=== PATIENT | male | born 1955 | race American Indian/Alaskan Native ===

== ENCOUNTER 2018-06-28 06:31 | Emergency (ER) | payer MEDICARE ==
[2018-06-28 06:44] VITALS: BP 137/79
[2018-06-28] MEDS ORDERED: TORADOL IM ONE (08:15)
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
--- NOTE | 2018-06-28 08:51 | XRay Report ---
FINAL REPORT EXAM: XR SPINE LUMBOSACRAL 2-3V HISTORY: BACK INJURY TECHNIQUE: Three views lumbar spine PRIORS: None. FINDINGS: Straightening of the lumbar spine. Diffuse mild endplate spondylosis. Lower lumbar mild intervertebra l disc space narrowing. Vertebral body heights are preserved. No listhesis, spondylolysis or other f racture. IMPRESSION: No acute fracture or gross malalignment. There are diffuse mild sequela of lumbar disc degeneration m ost significant in the lower lumbar spine.
== END 2018-06-28 09:34 | disposition home or self-care (01) ==
LOC: ED 06:31
DX: M54.40 Lumbago with sciatica, unspecified side (principal); I10 Essential (primary) hypertension; M19.90 Unspecified osteoarthritis, unspecified site; F17.200 Nicotine dependence, unspecified, uncomplicated
CPT/HCPCS: 72100; 96372; 99283; J1885

== ENCOUNTER 2018-07-04 05:54 | Emergency (ER) | payer MEDICARE ==
[2018-07-04] MEDS ORDERED: TORADOL IM ONE (06:15)
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
[2018-07-04 06:43] VITALS: BP 144/90
== END 2018-07-04 06:42 | disposition home or self-care (01) ==
LOC: ED 05:54
DX: M54.42 Lumbago with sciatica, left side (principal); G89.29 Other chronic pain; I10 Essential (primary) hypertension; M19.90 Unspecified osteoarthritis, unspecified site; F17.200 Nicotine dependence, unspecified, uncomplicated; Z79.899 Other long term (current) drug therapy
CPT/HCPCS: 96372; 99282; J1885

== ENCOUNTER 2020-09-26 09:58 | Outpatient (CLI) | payer MEDICARE ==
--- NOTE | 2020-09-26 11:11 | XRay Report ---
Right hip radiograph, 3 views. HISTORY: Right hip pain COMPARISON: None FINDINGS: Marked right hip degenerative arthrosis with obliteration of the superior right hip joint s pace and prominent subchondral cyst formation of the acetabulum and femoral head. There is remodeling of the superior right femoral head contour. Findings may be related to sequela of prior trauma. Ther e is only mild left hip osteoarthritis. No acute fracture or malalignment. Mild degenerative changes of the SI joints and pubic symphysis. Lower lumbar spondylosis partially imaged. IMPRESSION: Marked right hip osteoarthritis, may be related to sequela of prior trauma. No acute osse ous findings. Signer Name: Saleem Thao MD Signed: 09/26/2020 11:07 AM Workstation Name: [id number]
== END 2020-09-26 09:59 | disposition home or self-care (01) ==
LOC: XRAY 09:58
PROVIDERS: ATTEND Orthopaedic Surgery
DX: M16.11 Unilateral primary osteoarthritis, right hip (principal); M47.898 Other spondylosis, sacral and sacrococcygeal region; M47.816 Spondylosis without myelopathy or radiculopathy, lumbar region

== ENCOUNTER 2020-11-07 09:57 | Inpatient (IN) | payer MEDICARE ==
[2020-11-06 10:08] LABS: Hematocrit 41.4 % (35.5-45.6); Hemoglobin 14.7 gm/dl (11.8-15.2); Mean Corpuscular HGB Conc 36 % (32-34); Mean Corpuscular Volume 90 fl (84-94); Platelet Count 213 K/mm3 (140-440); Red Blood Count 4.62 M/mm3 (3.65-5.03); Red Cell Distribution Width 14.3 % (13.2-15.2)
[2020-11-06 10:20] LABS: BUN/Creatinine Ratio 19; Blood Urea Nitrogen 15 mg/dL (9-20); Calcium 9.9 mg/dL (8.4-10.2); Hemolysis Index 20
--- NOTE | 2020-11-06 15:11 | Anesthesia Consultation ---
Anesthesia Consult and Med Hx Date of service: 11/07/20 - Airway Anesthetic Teeth Evaluation: Poor (Missing) ROM Head & Neck: Adequate Mental/Hyoid Distance: Adequate Mallampati Class: Class I Intubation Access Assessment: Good - Pre-Operative Health Status ASA Pre-Surgery Classification: ASA3 Proposed Anesthetic Plan: General (Pt refuses SAB) - Pulmonary Hx Smoking: Yes (1/2 PPS X 42 YRS) Hx Asthma: No Hx Respiratory Symptoms: Yes (occasional nonproductive cough) SOB: No Hx Sleep Apnea: Yes (DX SLEEP APNEA , NO CPAP USE) - Cardiovascular System Hx Hypertension: Yes (X 10 YRS) Hx Heart Attack/AMI: No Hx Percutaneous Transluminal Coronary Angioplasty (PTCA): No Hx Cardia Arrhythmia: No - Central Nervous System Hx Neuromuscular Disorder: No Hx Seizures: No CVA: No Hx Back Pain: Yes (CHRONIC) Hx Psychiatric Problems: No - Gastrointestinal Hx Gastroesophageal Reflux Disease: No - Endocrine Hx Insulin Dependent Diabetes: No Hx Non-Insulin Dependent Diabetes: No Hx Thyroid Disease: No - Hematic Hx Sickle Cell Disease: No - Other Systems Hx Alcohol Use: Yes (BEER OCCA) Hx Substance Use: No Hx Cancer: No Hx Obesity: Yes
[~2020-11-07 09:57] MED LIST: ACETAMINOPHEN 500 MG TAB PO SCH; CELECOXIB 200 MG CAP PO NR; GABAPENTIN 300 MG CAP PO NR; MAGNESIUM OXIDE 400 MG TAB PO SCH; MIDAZOLAM 2 MG/2 ML INJ IV NR; ceFAZolin/Water 2 GM/20 ML 2 GM/20 ML SYRINGE IV NR
[2020-11-07] MEDS ORDERED: dexAMETHasone 4 MG/ML VIAL ONE (10:59)
[2020-11-07] MEDS ORDERED: BUPIVACAINE-EPINEPHRINE/PF 0.25%-1:200,000 (30 ML) VIAL INFILTRATI ONE (10:59)
[2020-11-07] MEDS: LACTATED RINGERS 1,000 ML IV SCH ×2 (11:30→19:12)
[2020-11-07] MEDS ORDERED: NEOMY 40 MG/POLYMYXIN B 200,000 UNITS/ML (GU) AMPULE IR ONE ×2 (12:09→15:13)
[2020-11-07] MEDS ORDERED: HYDROmorphone 1 MG/1 ML INJ ONE (12:23)
[2020-11-07] MEDS ORDERED: propofoL 200 MG/20 ML VIAL IV ONE (12:24)
[2020-11-07] MEDS ORDERED: LIDOCAINE MPF (2%) 20 MG/1 ML VIAL 5 ML ONE (12:24)
[2020-11-07] MEDS ORDERED: CITRIC ACID-SOD CITRATE 500 ML IV ONE (12:35)
[2020-11-07] MEDS ORDERED: KETOROLAC 30 MG/1 ML INJ ONE ×2 (14:01→15:18)
[2020-11-07] MEDS ORDERED: BUPIVACAINE/PF (0.5%) 5 MG/1 ML 30 ML VIAL INFILTRATI ONE (14:01)
[2020-11-07] MEDS ORDERED: MORPHINE 10 MG/1 ML INJ ONE (14:02)
[2020-11-07] MEDS ORDERED: SODIUM CHLORIDE 0.9% 100 ML ONE (14:03)
[2020-11-07] MEDS ORDERED: SODIUM CHLORIDE 0.9% 50 ML ONE (14:06)
[2020-11-07] MEDS ORDERED: PHENYLEPHRINE/NS 1,000 MCG/10 ML SYRINGE (OR USE) IV ONE (14:46)
[2020-11-07] MEDS ORDERED: BUPIVACAINE-EPINEPHRINE/PF 0.5%-1:200,000 (30 ML) VIAL INFILTRATI ONE (15:15)
[2020-11-07] MEDS ORDERED: KETOROLAC 30 MG/1 ML INJ IV ONE (15:16)
[2020-11-07] MEDS ORDERED: MORPHINE 10 MG/1 ML INJ IV ONE (15:16)
[2020-11-07] MEDS ORDERED: SODIUM CHLORIDE 0.9% 250 ML IVPB IV ONE (15:17)
[2020-11-07] MEDS ORDERED: SODIUM CHLORIDE 0.9% IRRIG SOLN 2000 ML IR ONE (15:18)
[2020-11-07] MEDS ORDERED: ONDANSETRON 4 MG/2 ML INJ ONE (15:18)
--- NOTE | 2020-11-07 15:18 | Procedure Note ---
Date of procedure: 11/07/20 Pre-op diagnosis: Severe arthritis right hip Post-op diagnosis: same Procedure: Right total hip replacement Procedure The patient was brought to the OR and placed in the OR table in the supine position following induction intubation by anesthesia the patient's was turned into the left lateral decubitus position care was taken to protect the bony areas and a axillary roll was used and the right axilla. Right hip and thigh were then prepped and draped in the usual sterile manner. A timeout procedure was done to identify the patient and the correct operative site. Using the lateral approach incision was taken down through skin and subcutaneous the fascia fransisca was incised A Charnley retractor was placed deep within the wound care was taken to enter the anterior hip capsule by the vastus lateralis and the gluteus medius tendons in the knee was flexed and internally rotated which brought us upon the anterior portion of the hip joint using a small broach and osteotomy was performed on the femoral neck approximately 2 cm to centimeters proximal to the lesser trochanter. Using Jimenez retractors the the acetabular structures were evaluated the patient was noted to have some moderate changes within the acetabulum reaming was begun starting with a 46 mm diameter and advancing up to a 58 mm cup was taken to the observed bleeding bone within the acetabulum nicely 58 mm cup was inserted care was taken to maintain the proper version that being 45 abduction and 20 of anteversion and a small screw was used to stabilize this acetabular component next attention was turned to the proximal femur using a [employer] cutter and the proximal femoral canal was entered this was then reamed and broached to a #6 stem And the hip joint was then reduced using a 30 neutral neck and a 36 mm head hip was reduced taken through a range of motion and was found to be stable Trial component was removed and the hip joint was then copiously irrigated the final components were inserted that being a #5 femoral stem with a 36 mm head again the hip joint was reduced and was taken through a range of motion and found stable. He was closed in a standard routine fashion. Dressings were applied the patient tolerated the procedure and there were no complications he was taken to postanesthesia recovery stable Anesthesia: GETA Surgeon: GAMAL CHAVARRIA (Karina Bryant, 1st assist) Estimated blood loss: other (300 cc) Pathology: list (Femoral head and neck sent to pathology) Specimen disposition: to lab Condition: stable Disposition: PACU
[2020-11-07] MEDS: HYDROmorphone 1 MG/1 ML INJ IV PRN ×4 (15:35→16:20)
[2020-11-07] MEDS ORDERED: KETOROLAC 30 MG/1 ML INJ IV PRN (16:00)
[2020-11-07] MEDS ORDERED: HYDROmorphone 1 MG/1 ML INJ IV PRN (16:00)
--- OUTSIDE RECORDS SUMMARY | 2020-11-07 16:20 | External Medical Summary ---
:1955 Author Organization [facility], [facility] Address [address] [place] [address] Care Team Providers Name Role Phone Ish Houser Unavailable [phone] PROBLEMS Type Condition ICD9-CM [id number] Onset Condition W/U Status Risk SNOM ED Notes Code Code Dates Status Code Problem Unilateral M16.11 Active confirmed [id number] primary osteoarthrit is, right hip ALLERGIES No Known Allergies ENCOUNTERS from 1955 to 2020-11-07 Encounter Location Date Provider Diagnosis [facility] [address] Oct, Ish Houser [facility] [place] [facility] oste oarthritis, right [place], [place]16[place] [id number] right hip M25.5 51 IMMUNIZATIONS No Information SOCIAL HISTORY Sex Assigned At : Social History Observation Description Sex Assigned At Unknown REASON FOR REFERRAL from 1955 to 2020-11-07 Diagnosis 1 Unilateral primary osteoarth ritis, right hip (M16.11) Diagnosis 2 Pain in right hip (M25.551) Referral Organization [facility] Referring Provider First Name Ish Referring Provider Last Name Mik Referring Provider Specialty Orthopedic Surgery Referred Provider [facility], - Referral Priority Routine VITAL SIGNS No information MEDICATIONS Medication SIG (Take, Route, Notes Start Date End Date Status Frequency, Duration) Tylenol/codeine #3 #30 300-30 one tablet orally September, 21 Active mg every 4-6 hours prn pain amLODIPine Besylate 10 MG 1 tablet Orally Once Active a day for 30 day(s) hydroCHLOROthiazide 25 MG 1 tablet in the Active morning Orally Once a day for 30 day(s) PROCEDURES No Information RESULTS No Results REASON FOR VISIT Right hip pain MEDICAL (GENERAL) HISTORY Type Description Date Medical History htn Medical History back pain Medical History nervous disorder Surgical History hernia repair 04/10/2018 Hospitalization History see above Goals Section No Information Health Concerns No Information MEDICAL EQUIPMENT No Information MENTAL STATUS No Information FUNCTIONAL STATUS No Information ASSESSMENTS Encounter Date Diagnosis Assessment Notes Treatment Notes Treatm ent Clinical Notes Oct, Unilateral Discussed treatment primary options with the osteoarthritis, patient based on his right hip (ICD-10 history physical - M16.11) examination and review of the x-rays showing significant osteoarthritic changes in the right hip I have therefore recommended a right total hip replacement for this patient Oct, Pain in right hip (ICD-10 - M25.551) PLAN OF TREATMENT Treatment Notes Assessment Notes Clinical Notes Unilateral primary Discussed treatment options with the osteoarthritis, right hip patient based on his history physi vinicio examination and review of the x-rays showing significant osteoarthritic changes in the right hip I have therefore recommended a right total hip replacement for this patient Referrals Referral Date Details Next Appt Details Provider Name:Ish Houser, 2020-11-07 12:00:00 AM, [address] [place] [address], [phone], Insurance Providers Payer Name Payer Payer Insured Patient Coverage Coverage End Address Phone Name Relationship to Start Date Natanael e Insured [employer] [phone] Aldair Watkins Medicare HMO Madeleine FREITAS [id number]
--- NOTE | 2020-11-07 18:18 | Post Anesthesia Evaluation ---
- Post Anesthesia Evaluation Patient Participated: Yes Airway Patent: Yes Stable Respiratory Function: Yes Nausea/Vomiting: No Temp > 96.8F: Yes Pain Manageable: Yes Adequeate Hydration: Yes Anesthesia Complications: No Block Receding Appropriately: Not Applicable Patient on Ventilator: No
--- NOTE | 2020-11-07 18:18 | Anesthesia Day of Surgery ---
Anesthesia Day of Surgery - Day of Surgery Patient Examined: Yes Patient H&P Reviewed: Yes Patient is NPO: Yes
--- NOTE | 2020-11-07 20:34 | XRay Report ---
RIGHT HIP 3 VIEWS INDICATION / CLINICAL INFORMATION: Postop evaluation. COMPARISON: None available. FINDINGS: Right total hip arthroplasty. Normal alignment. Signer Name: Joseph Moreno MD FACR Signed: 11/07/2020 8:29 PM Workstation Name: [id number]
[2020-11-07 20:59] LABS: Hematocrit 39.2 % (35.5-45.6); Hemoglobin 13.5 gm/dl (11.8-15.2)
[2020-11-07] MEDS: MORPHINE 2 MG/1 ML INJ IV PRN (21:09)
[2020-11-08] MEDS: LACTATED RINGERS 1,000 ML IV SCH (06:38)
[2020-11-08] MEDS: MORPHINE 2 MG/1 ML INJ IV PRN ×4 (06:43→20:07)
[2020-11-08] MEDS: ENOXAPARIN 40 MG/0.4 ML INJ SUB-Q SCH (08:26)
[2020-11-08 10:21] LABS: Hematocrit 36.3 % (35.5-45.6); Hemoglobin 12.3 gm/dl (11.8-15.2)
--- NOTE | 2020-11-08 16:19 | Progress Note ---
Assessment and Plan s/p right THR doing well post op day 1 continue PT and observation Subjective Date of service: 11/08/20 Interval history: c/o incisional pain, otherwise ok, started PT today, hopefully dc soon Objective Vital signs: Vital Signs - 12hr 11/08/20 11/08/20 11/08/20 05:21 07:16 10:13 Temperature 99.6 F 98.0 F Pulse Rate 93 H 93 H Respiratory 18 20 18 Rate Blood Pressure 132/79 127/78 O2 Sat by Pulse 95 99 Oximetry 11/08/20 11/08/20 11/08/20 11:39 11:50 14:52 Temperature 99.2 F 99.2 F Pulse Rate 101 H 98 H Respiratory 18 20 18 Rate Blood Pressure 143/61 133/67 O2 Sat by Pulse 100 95 Oximetry 11/08/20 15:51 Temperature Pulse Rate Respiratory 18 Rate Blood Pressure O2 Sat by Pulse Oximetry Incision: clean and dry Weight bearing status: as tolerated - Labs CBC & BMP: 11/08/20 09:24 11/06/20 00:01
[2020-11-09] MEDS: MORPHINE 2 MG/1 ML INJ IV PRN ×4 (01:28→16:33)
[2020-11-09] MEDS: ENOXAPARIN 40 MG/0.4 ML INJ SUB-Q SCH (08:36)
--- NOTE | 2020-11-09 16:06 | Discharge Summary ---
Providers - Providers Date of Admission: 11/07/20 15:49 Date of discharge: 11/09/20 Attending physician: GAMAL CHAVARRIA MD 11/07/20 15:06 Physical Therapy Evaluation and Treat [CONS] Routine Comment: Reason For Exam: Postop evaluation gait training Weight bearing status?: Full wt bearing Assistive devices?: Yes If so list: Walker 11/08/20 10:46 Occupational Therapy Evaluate and Treat [CONS] Routine Comment: Reason For Exam: right hip replacement [facility] Condition: Stable Hospital course: 65-year-old male with a long history right hip pain and stiffness plain x-rays reveals significant osteoarthritis patient was admitted to the hospital where right total hip replacement was done without complications postoperatively he was seen and evaluated by physical therapy where he was given instructions on gait and range of motion exercises as well as hip precautions in addition patient was also seen by case management services for home health arrangements Disposition: DC/- HOME UNDER HOME HL Final Discharge Diagnosis (Prints w/discharge instructions): severe arthritis right hip Core Measure Documentation - Palliative Care Palliative Care/ Comfort Measures: Not Applicable - Core Measures Any of the following diagnoses?: none - VTE Discharge Requirements Deep Vein Thrombosis/Pulmonary Embolism Present on Admission: No Has pt received <5 days of overlap therapy or INR<2.0: Yes Anticoagulant overlap therapy prescribed at discharge: Yes Contraindication No Overlap Therapy order at DC: Medical Contraindication - Acute NH Discharge Requirements Aspirin at discharge: No Reason for no aspirin on DC: Medical contraindication - Heart Failure Discharge Requirements ALEXI/ARB for LVSD if EF <40%: Not Applicable Reason for no ALEXI/ARB: Medical contraindication - Stroke Discharge Requirements Statin for LDL = or >70 mg/dl on DC: Not Applicable Exam - Constitutional Vitals: Temp Pulse Resp BP Pulse Ox 99.2 F 95 H 18 127/78 97 11/09/20 11:51 11/09/20 11:51 11/09/20 11:51 11/09/20 11:51 11/09/20 11:51 General appearance: Present: no acute distress, well-nourished - EENT Eyes: Present: PERRL ENT: hearing intact, clear oral mucosa - Neck Neck: Present: supple, normal ROM - Respiratory Respiratory effort: normal Respiratory: bilateral: CTA - Cardiovascular Heart Sounds: Present: S1 & S2. Absent: rub, click - Extremities Extremities: pulses symmetrical, No edema Peripheral Pulses: within normal limits - Abdominal General gastrointestinal: Present: soft, non-tender, non-distended, normal bowel sounds Male genitourinary: Present: normal - Integumentary Integumentary: Present: clear, warm, dry - Musculoskeletal Musculoskeletal: gait normal, strength equal bilaterally - Psychiatric Psychiatric: appropriate mood/affect, intact judgment & insight - Neurologic Neurologic: CNII-XII intact, moves all extremities Plan Activity: advance as tolerated Weight Bearing Status: Weight Bear as Tolerated Diet: regular Wound: keep clean and dry Special Instructions: physical therapy Durable Medical Equipment Needed Upon Discharge: Walker-Standard, Bedside Commode Follow up with: STACIE HIGH MD [Primary Care Provider] - 7 Days Prescriptions: Apixaban [Eliquis] 5 mg PO DAILY #30 tablet Oxycodone HCl/Acetaminophen [Percocet 10/325 mg] 1 each PO Q6HR PRN #30 tablet PRN Reason: Pain
[2020-11-09 16:53] VITALS: BP 135/69
== END 2020-11-09 19:08 | disposition home health service (06) | DRG 470 ==
LOC: OR 09:57 → 3B 15:49
PROVIDERS: ADMIT Orthopaedic Surgery; ATTEND Orthopaedic Surgery
PROC: 0SR90JZ Replacement of Right Hip Joint with Synthetic Substitute, Open Approach (ICD-10-PCS; principal; 2020-11-07)
DX: M16.11 Unilateral primary osteoarthritis, right hip (principal); F17.200 Nicotine dependence, unspecified, uncomplicated; I10 Essential (primary) hypertension; Z20.822 Contact with and (suspected) exposure to COVID-19; Z72.89 Other problems related to lifestyle
CPT/HCPCS: 36415; 80048; 85014; 85018; 85027; 86850; 86900; 86901; 99406; G0378; A4217; C1776; J0690; J1100; J1170; J1650; J1885; J2250; J2270; J2370; J2405; J2704; J7050; J7120; U0003

== ENCOUNTER 2020-11-19 11:35 | Emergency (ER) | payer MEDICARE ==
--- NOTE | 2020-11-19 11:59 | Event Note ---
ED Screening Note ED Screening Note: Had right hip surgery on 11/07/[address] Houser He was placed on Eliquis Patient states that when he first started taking it he began having bleeding so he stopped taking it He states again he began taking it this morning but again started having heavy bleeding from the incision site He denies any fever, chills, redness, increased warmth, pus drainage This initial assessment/diagnostic orders/clinical plan/treatment(s) is/are subject to change based on patients health status, clinical progression and re- assessment by fellow clinical providers in the ED. Further treatment and workup at subsequent clinical providers discretion. Patient/guardian urged not to elope from the ED as their condition may be serious if not clinically assessed and managed. Initial orders include: labs
[2020-11-19 12:51] LABS: Basophils # (Auto) 0.1 K/mm3 (0.0-0.1); Basophils % (Auto) 0.7 % (0.0-1.8); Eosinophils # (Auto) 0.2 K/mm3 (0.0-0.4); Eosinophils % (Auto) 2.1 % (0.0-4.3); Hematocrit 37.5 % (35.5-45.6); Hemoglobin 12.6 gm/dl (11.8-15.2); Lymphocytes % (Auto) 26.5 % (13.4-35.0); Mean Corpuscular HGB Conc 34 % (32-34); Mean Corpuscular Volume 91 fl (84-94); Monocytes # (Auto) 0.6 K/mm3 (0.0-0.8); Monocytes % (Auto) 7.9 % (0.0-7.3); Platelet Count 383 K/mm3 (140-440); Red Blood Count 4.12 M/mm3 (3.65-5.03); Red Cell Distribution Width 14.5 % (13.2-15.2)
[2020-11-19 13:02] LABS: INR 1.08 (0.87-1.13)
[2020-11-19 13:03] LABS: Partial Thromboplastin Time 33.7 Sec. (24.2-36.6)
[2020-11-19 13:04] LABS: Alanine Aminotransferase 14 units/L (7-56); Albumin 3.8 g/dL (3.9-5); BUN/Creatinine Ratio 19; Blood Urea Nitrogen 15 mg/dL (9-20); Calcium 9.4 mg/dL (8.4-10.2); Hemolysis Index 2
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
[2020-11-19 14:21] VITALS: BP 129/76
== END 2020-11-19 14:23 | disposition home or self-care (01) ==
LOC: ED 11:35
DX: L76.22 Postprocedural hemorrhage of skin and subcutaneous tissue following other procedure (principal); I10 Essential (primary) hypertension; M19.90 Unspecified osteoarthritis, unspecified site; F17.200 Nicotine dependence, unspecified, uncomplicated; Z79.899 Other long term (current) drug therapy; Z98.890 Other specified postprocedural states
CPT/HCPCS: 36415; 80053; 85025; 85610; 85730

== ENCOUNTER 2021-01-07 09:04 | Emergency (ER) | payer MEDICARE ==
[2021-01-07 10:05] VITALS: BP 136/80
[2021-01-07] MEDS ORDERED: KETOROLAC 30 MG/1 ML INJ IM ONE (10:55)
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
--- NOTE | 2021-01-07 11:31 | XRay Report ---
AP PELVIS AND RIGHT HIP 3 VIEWS INDICATION / CLINICAL INFORMATION: right hip pain. S/P right hip surgery. COMPARISON: Right hip x-ray 11/07/2020 FINDINGS: Right total hip arthroplasty again noted without periprosthetic fracture, loosening or hardware failu re. Multifocal areas of developing heterotopic ossification within the lateral periprosthetic capsule soft tissues. Moderate degenerative arthrosis left hip and both SI joints. Signer Name: Hira Uriostegui MD Signed: 01/07/2021 11:27 AM Workstation Name: [id number]
[2021-01-07 11:44] LABS: Basophils % (Auto) 0.6 % (0.0-1.8); Eosinophils # (Auto) 0.1 K/mm3 (0.0-0.4); Eosinophils % (Auto) 0.9 % (0.0-4.3); Hematocrit 34.7 % (35.5-45.6); Hemoglobin 11.7 gm/dl (11.8-15.2); Lymphocytes # (Auto) 1.3 K/mm3 (1.2-5.4); Lymphocytes % (Auto) 17.7 % (13.4-35.0); Mean Corpuscular HGB Conc 34 % (32-34); Mean Corpuscular Volume 87 fl (84-94); Monocytes # (Auto) 0.7 K/mm3 (0.0-0.8); Monocytes % (Auto) 9.6 % (0.0-7.3); Platelet Count 338 K/mm3 (140-440); Red Cell Distribution Width 16.6 % (13.2-15.2)
[2021-01-07 12:04] LABS: Alanine Aminotransferase 11 units/L (7-56); Albumin 3.6 g/dL (3.9-5); Blood Urea Nitrogen 17 mg/dL (9-20); Calcium 9.7 mg/dL (8.4-10.2); Hemolysis Index 0
[2021-01-07 12:05] LABS: BUN/Creatinine Ratio 24
== END 2021-01-07 13:15 | disposition home or self-care (01) ==
LOC: ED 09:04
DX: M25.551 Pain in right hip (principal); I10 Essential (primary) hypertension; M19.90 Unspecified osteoarthritis, unspecified site; A15.9 Respiratory tuberculosis unspecified; M54.30 Sciatica, unspecified side; Z98.890 Other specified postprocedural states; F17.200 Nicotine dependence, unspecified, uncomplicated
CPT/HCPCS: 36415; 73502; 80053; 85025; 86140; 96372; 99283; J1885

== ENCOUNTER 2021-07-05 12:19 | Outpatient (CLI) | payer MEDICARE ==
[2021-07-05 13:13] LABS: Blood Urea Nitrogen 13 mg/dL (9-20)
--- NOTE | 2021-07-05 14:52 | Cat Scan Report ---
CT ABDOMEN AND PELVIS WITH CONTRAST INDICATION / CLINICAL INFORMATION: BILATERAL INGUINAL HERNIA, WITHOUT OBTRUCTION OR GANGRENE, RECURRE NT. TECHNIQUE: Axial CT images were obtained through the abdomen and pelvis after IV contrast. All CT sc ans at this location are performed using CT dose reduction for ALARA by means of automated exposure c ontrol. COMPARISON: None available. FINDINGS: LOWER CHEST: Atelectasis and/or scarring right lower lobe. No acute findings within the right lower l obe. LIVER: No significant abnormality. GALLBLADDER: No significant abnormality. BILE DUCTS: No significant abnormality. SPLEEN: No significant abnormality. PANCREAS: No significant abnormality. ADRENALS: No significant abnormality. RIGHT KIDNEY / URETER: No significant abnormality. LEFT KIDNEY / URETER: No significant abnormality. STOMACH / DUODENUM / SMALL BOWEL: A moderate segment of small bowel extends within a large right ingu inal hernia. There is no CT evidence of incarceration or evidence of obstruction. COLON: No significant abnormality. APPENDIX: No significant abnormality. PERITONEUM: No free air or free fluid are present within the abdomen or pelvis. LYMPH NODES: Borderline minimally enlarged right common iliac lymph nodes measuring 12 mm short axis. Additional bilateral pelvic sidewall lymph nodes borderline in size measuring 8-9 mm short axis. Sig nificance uncertain. AORTA / ARTERIES: Moderate atherosclerotic calcification without acute abnormality. IVC / VEINS: No significant abnormality. URINARY BLADDER: No significant abnormality. REPRODUCTIVE ORGANS: Prostate enlarged measuring 5.9 cm. ADDITIONAL ABDOMINAL/PELVIC FINDINGS: None. SKELETAL SYSTEM: Previous right hip arthroplasty. IMPRESSION: 1. Large right inguinal hernia containing nonincarcerated nonobstructed segment of small bowel. 2. Prostatomegaly. Additional pelvic sidewall and right common iliac lymph nodes are borderline to mi nimally enlarged. Correlation with PSA recommended. Significance of the lymph nodes is uncertain. Signer Name: Randall Diaz II, MD Signed: 07/05/2021 2:47 PM Workstation Name: [id number]
== END 2021-07-05 12:20 | disposition home or self-care (01) ==
LOC: CT 12:19
PROVIDERS: ATTEND Surgery
DX: K40.21 Bilateral inguinal hernia, without obstruction or gangrene, recurrent (principal); K40.20 Bilateral inguinal hernia, without obstruction or gangrene, not specified as recurrent; I70.0 Atherosclerosis of aorta; N40.0 Benign prostatic hyperplasia without lower urinary tract symptoms; R59.0 Localized enlarged lymph nodes
CPT/HCPCS: 36415; 74177; 82565; 84520; Q9967

== ENCOUNTER 2021-08-02 05:44 | Day surgery (SDC) | payer MEDICARE ==
[2021-07-31 09:50] LABS: Hematocrit 38.9 % (35.5-45.6); Hemoglobin 12.7 gm/dl (11.8-15.2); Mean Corpuscular HGB Conc 33 % (32-34); Mean Corpuscular Volume 86 fl (84-94); Platelet Count 281 K/mm3 (140-440); Red Blood Count 4.53 M/mm3 (3.65-5.03)
[2021-07-31 10:04] LABS: Blood Urea Nitrogen 13 mg/dL (9-20); Calcium 10.3 mg/dL (8.4-10.2); Hemolysis Index 0
[2021-07-31 10:08] LABS: BUN/Creatinine Ratio 19
[~2021-08-02 05:44] MED LIST changes: -ACETAMINOPHEN 500 MG TAB PO SCH; -CELECOXIB 200 MG CAP PO NR; -GABAPENTIN 300 MG CAP PO NR; +LACTATED RINGERS 1,000 ML IV SCH; -MAGNESIUM OXIDE 400 MG TAB PO SCH; -MIDAZOLAM 2 MG/2 ML INJ IV NR; -ceFAZolin/Water 2 GM/20 ML 2 GM/20 ML SYRINGE IV NR
[2021-08-02] MEDS ORDERED: ceFAZolin/STERILE WATER 2 GM/20 ML SYRINGE IV NR (06:00)
--- NOTE | 2021-08-02 07:15 | Anesthesia Consultation ---
Anesthesia Consult and Med Hx - Airway Anesthetic Teeth Evaluation: Good, Chipped ROM Head & Neck: Adequate Mental/Hyoid Distance: Adequate Mallampati Class: Class III Intubation Access Assessment: Good - Pulmonary Exam CTA: Yes - Cardiac Exam Cardiac Exam: RRR - Pre-Operative Health Status ASA Pre-Surgery Classification: ASA2 Proposed Anesthetic Plan: General (Labs and Chart reviewed. All questions answered) - Pulmonary Hx Smoking: Yes (3-4 CIGARS A DAY) Hx Asthma: No Hx Respiratory Symptoms: Yes (occasional nonproductive cough) SOB: No COPD: No Hx Sleep Apnea: Yes (Dx SLIME) - Cardiovascular System Hx Hypertension: Yes Hx Heart Attack/AMI: No Hx Percutaneous Transluminal Coronary Angioplasty (PTCA): No Hx Cardia Arrhythmia: No - Central Nervous System Hx Neuromuscular Disorder: No Hx Seizures: No CVA: No Hx Back Pain: Yes (CHRONIC) Hx Psychiatric Problems: No - Gastrointestinal Hx Gastroesophageal Reflux Disease: No - Endocrine Hx Insulin Dependent Diabetes: No Hx Non-Insulin Dependent Diabetes: No Hx Thyroid Disease: No - Hematic Hx Sickle Cell Disease: No - Other Systems Hx Alcohol Use: No Hx Substance Use: No Hx Cancer: No Hx Obesity: Yes
[2021-08-02] MEDS ORDERED: LIDOCAINE MPF (2%) 20 MG/1 ML VIAL 5 ML ONE (07:16)
--- NOTE | 2021-08-02 07:16 | Anesthesia Day of Surgery ---
Anesthesia Day of Surgery - Day of Surgery Patient Examined: Yes Patient H&P Reviewed: Yes Patient is NPO: Yes
[2021-08-02] MEDS ORDERED: propofoL 200 MG/20 ML VIAL IV ONE (07:21)
[2021-08-02] MEDS ORDERED: KETAMINE/STERILE WATER 50 MG/ML SYRINGE ONE (07:21)
[2021-08-02] MEDS ORDERED: LIDOCAINE 2%/EPINEPHRINE 1:100,000 VIAL (20 ML) INFILTRATI ONE ×2 (07:23→08:52)
[2021-08-02] MEDS ORDERED: BUPIVACAINE/PF (0.5%) 5 MG/1 ML 30 ML VIAL INFILTRATI ONE ×2 (07:23→08:52)
[2021-08-02] MEDS ORDERED: ACETAMINOPHEN 500 MG TAB PO NR (07:35)
[2021-08-02] MEDS ORDERED: fentaNYL 100 MCG/2 ML INJ ONE (07:42)
[2021-08-02] MEDS ORDERED: MIDAZOLAM 2 MG/2 ML INJ ONE (07:42)
[2021-08-02] MEDS ORDERED: KETOROLAC 30 MG/1 ML INJ ONE (07:44)
[2021-08-02] MEDS ORDERED: dexAMETHasone 20 MG/5 ML VIAL ONE (07:44)
[2021-08-02] MEDS ORDERED: ONDANSETRON 4 MG/2 ML INJ ONE (07:44)
[2021-08-02] MEDS ORDERED: MAGNESIUM OXIDE 400 MG TAB PO SCH (08:00)
[2021-08-02] MEDS ORDERED: GABAPENTIN 300 MG CAP PO NR (08:00)
[2021-08-02] MEDS ORDERED: HYDROmorphone 1 MG/1 ML INJ IV PRN ×2 (08:07)
[2021-08-02] MEDS ORDERED: MEPERIDINE 25 MG/1 ML INJ IV PRN (08:07)
[2021-08-02] MEDS ORDERED: NALOXONE 0.4 MG/1 ML INJ IV PRN (08:07)
[2021-08-02] MEDS ORDERED: ONDANSETRON 4 MG/2 ML INJ IV PRN (08:07)
[2021-08-02] MEDS ORDERED: WATER FOR IRRIG STERILE 1,500 ML BOTTLE IR ONE (08:53)
[2021-08-02] MEDS ORDERED: ROCURONIUM 50 MG/5 ML INJ IV ONE (09:56)
[2021-08-02] MEDS ORDERED: PHENYLEPHRINE/NS 1,000 MCG/10 ML SYRINGE (OR USE) IV ONE (09:56)
[2021-08-02] MEDS ORDERED: LACTATED RINGERS 1,000 ML ONE (09:57)
[2021-08-02] MEDS ORDERED: GLYCOPYRROLATE 0.4 MG/2 ML INJ ONE (11:00)
[2021-08-02] MEDS ORDERED: NEOSTIGMINE 10MG/10 ML INJ MDV ONE (11:00)
--- NOTE | 2021-08-02 11:10 | Short Stay Summary ---
Short Stay Documentation Date of service: 08/02/21 Narrative H&P: 66-year-old -[place]og[place] male with right inguinal hernia status post robotic repair with mesh - History Past Surgical History: hernia repair, bowel surgery - Allergies and Medications Current Medications: Allergies No Known Allergies Allergy (Verified 07/25/21 16:24) Home Medications Medication Instructions Recorded Confirmed Last Taken Type Amlodipine Besylate [Norvasc] 10 mg PO DAILY 04/08/18 08/02/21 08/02/21 05:15 History hydroCHLOROthiazide [HCTZ] 25 mg PO DAILY 04/08/18 07/25/21 08/01/21 History Acetaminophen/Codeine [Tylenol 1 tab PO Q6HR PRN 11/02/20 07/25/21 08/01/21 History /Codeine # 3 tab] Gabapentin [Neurontin] 300 mg PO TID 07/25/21 07/25/21 08/01/21 History Ibuprofen [Motrin] 600 mg PO Q8H PRN 07/25/21 08/02/21 07/26/21 History Active Medications Cefazolin Sodium (Cefazolin/Sterile Water 2 Gm/20 Ml Syringe) 2 gm IV PREOP NR Stop: 08/02/21 23:00 Hydromorphone HCl (Hydromorphone 1 Mg/1 Ml Inj) 0.5 mg IV Q10MIN PRN PRN Reason: Pain , Severe (7-10) Stop: 08/02/21 23:00 Hydromorphone HCl (Hydromorphone 1 Mg/1 Ml Inj) 0.25 mg IV Q10MIN PRN PRN Reason: Pain, Moderate (4-6) Stop: 08/02/21 23:00 Lactated Ringer's (Lactated Ringers) 1,000 mls @ 42 mls/hr IV DIRECT [facility] Last Admin: 08/02/21 06:20 Dose: 42 mls/hr Magnesium Oxide (Magnesium Oxide 400 Mg Tab) 400 mg PO QDAY [facility] Last Admin: 08/02/21 07:40 Dose: 400 mg Naloxone HCl (Naloxone 0.4 Mg/1 Ml Inj) 0.1 mg IV Q2MIN PRN PRN Reason: Res Rate </= 8 or 02 SAT < 92% Ondansetron HCl (Ondansetron 4 Mg/2 Ml Inj) 4 mg IV ONCE PRN PRN Reason: Nausea And Vomiting - Physical exam General appearance: well-nourished HEENT: Atraumatic Lungs: Clear to auscultation Heart: Regular rate Gastrointestinal: normal, normoactive bowel sounds Extremities: no ischemia, No edema - Brief post op/procedure progress note Date of procedure: 08/02/21 Pre-op diagnosis: Right inguinal hernia Procedure: Robotic repair right inguinal hernia Anesthesia: CARLYN Surgeon: ARIEL OWEN [employer]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
--- NOTE | 2021-08-02 11:15 | Operative Report ---
Operative Report Operative Report: Date: 08/02/2021 Preop diagnosis: Right inguinal hernia Postop diagnosis: Same Procedure: Robotic right inguinal hernia repair with mesh Surgeon: Dr. Ho Milk Hauler: Dr. Summers Anesthesia: CARLYN estimated blood loss: Minimal Specimen: None Findings: This patient presents with bilateral inguinal hernias. He is taken to the OR and under general endotracheal anesthesia timeout is completed consents on the chart. Patient received 2 g of Ancef IV. Chen catheter is in place. The abdomen is shaved and prepped with ChloraPrep. Sterilely draped. A supraumbilical incision is made. 12 mm port was placed through this. Abdomen is insufflated with CO2. And the abdomen is inspected. 8 mm port is established in the right and left hypogastric areas. The robot is then docked in the usual fashion. Cautery scissors is used in arm 1 and the bipolar grasper in arm two. 30 degree angled scope was used. Peritoneal incision is made in the right lower quadrant. Properitoneal dissection is then performed to expose the pubic tubercle the hernia and cord structures, and the lateral space. The umbilical hernia is completely dissected free of the internal ring. Right large 3D Bard mesh is then placed into the abdomen. The mesh is placed into the properitoneal dissection. Medial and lateral sutures are used with 2-0 Vicryl to fix the edges of the mesh in place. The peritoneal incision is in reapproximated using 3 oh barbed suture. Sponge and needle counts are noted and are correct. The supraumbilical incision is closed with 2-0 Vicryl sutures. CO2 is allowed to exit the abdomen. All ports were then removed. Skin incisions were closed with 4-0 Vicryl and Dermabond. Patient tolerated seizure well.
[2021-08-02 15:31] VITALS: BP 118/75
== END 2021-08-02 12:30 | disposition home or self-care (01) ==
LOC: OR 05:44
PROVIDERS: ATTEND Surgery
DX: K40.90 Unilateral inguinal hernia, without obstruction or gangrene, not specified as recurrent (principal); I10 Essential (primary) hypertension; E66.9 Obesity, unspecified; M19.90 Unspecified osteoarthritis, unspecified site; Z79.899 Other long term (current) drug therapy; F17.210 Nicotine dependence, cigarettes, uncomplicated; Z96.641 Presence of right artificial hip joint; Z91.81 History of falling; Z98.890 Other specified postprocedural states
CPT/HCPCS: 36415; 49651; 80048; 85027; C1781; J0690; J1100; J1815; J1885; J2250; J2370; J2405; J2704; J2710; J3010; J3490; J7120

== ENCOUNTER 2021-08-31 11:38 | Emergency (ER) | payer MEDICARE ==
[2021-08-31 13:32] LABS: Hemoglobin 11.5 gm/dl (11.8-15.2); Mean Corpuscular HGB Conc 33 % (32-34); Mean Corpuscular Volume 84 fl (84-94); Platelet Count 378 K/mm3 (140-440); Red Blood Count 4.15 M/mm3 (3.65-5.03); Red Cell Distribution Width 15.7 % (13.2-15.2)
[2021-08-31 14:23] LABS: Alanine Aminotransferase 11 units/L (7-56); Albumin 3.9 g/dL (3.9-5); Blood Urea Nitrogen 13 mg/dL (9-20); Calcium 9.7 mg/dL (8.4-10.2); Hemolysis Index 11
[2021-08-31] MEDS ORDERED: HYDROcodone/ACETAMINOPHEN 5-325 MG TAB PO ONE (14:25)
[2021-08-31 14:39] LABS: BUN/Creatinine Ratio 22
--- NOTE | 2021-08-31 15:21 | Vascular Lab Report ---
DUPLEX DOPPLER LOWER EXTREMITY VEINS, BILATERAL INDICATION: b/l post op leg edema R>L. TECHNIQUE: Duplex doppler imaging was performed through the veins of both lower extremities using venous ion kerri and other maneuvers. COMPARISON: No relevant prior imaging study available. FINDINGS: Right Common femoral vein: Negative. Right Superficial femoral vein: Negative. Right Popliteal vein: Negative. Right Calf veins: Negative. Left Common femoral vein: Negative. Left Superficial femoral vein: Negative. Left Popliteal vein: Negative. Left Calf veins: Negative. Additional findings: None.. IMPRESSION: 1. No sonographic evidence for DVT in either lower extremity. Signer Name: Joshua Mccain MD Signed: 08/31/2021 3:17 PM Workstation Name: [id number]
--- NOTE | 2021-08-31 15:46 | XRay Report ---
CHEST 2 VIEWS INDICATION: chest pain. COMPARISON: None FINDINGS: SUPPORT DEVICES: None. HEART: Within normal limits. LUNGS/PLEURA: No acute air space or interstitial disease. No pneumothorax. ADDITIONAL FINDINGS: None. IMPRESSION: 1. No acute findings. Signer Name: Joshua Mccain MD Signed: 08/31/2021 3:41 PM Workstation Name: [id number]
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
[2021-08-31 17:20] VITALS: BP 156/98
== END 2021-08-31 17:22 | disposition home or self-care (01) ==
LOC: ED 11:38
DX: R60.0 Localized edema (principal); G62.9 Polyneuropathy, unspecified; I10 Essential (primary) hypertension; M19.90 Unspecified osteoarthritis, unspecified site; F17.200 Nicotine dependence, unspecified, uncomplicated; Z79.899 Other long term (current) drug therapy
CPT/HCPCS: 36415; 71046; 80053; 83880; 84484; 85027; 93970; 99284

== ENCOUNTER 2021-10-04 13:48 | Outpatient (CLI) | payer MEDICARE | END 2021-10-04 13:49 | disposition home or self-care (01) | LOC: LAB 13:48 | PROVIDERS: ATTEND Orthopaedic Surgery | DX: M25.451 Effusion, right hip (principal) | CPT/HCPCS: 87076; 87116; 87186 ==